=== PATIENT | female | born 1980 | race Caucasian/White ===

== ENCOUNTER 2016-06-25 06:56 | Day surgery (SDC) | payer OTHER ==
[2016-06-25] MEDS ORDERED: LIDOCAINE W/ SODIUM BICARB 0.5 ML SYR ONE (07:05)
[2016-06-25] MEDS ORDERED: Lactated Ringers 1,000 ML PRIMARY IV ONE (07:05)
[2016-06-25] MEDS ORDERED: MIDAZOLAM 5 MG/1 ML ONE (07:29)
[2016-06-25] MEDS ORDERED: fentaNYL Inj 100 MCG/2 ML VIAL ONE (07:29)
[2016-06-25] MEDS ORDERED: PROMETHAZINE 25 MG/1 ML VIAL IM ONE (07:40)
[2016-06-25] MEDS ORDERED: LIDOCAINE HCL 1%/EPI 1:100,000 - 20 ML VIAL ONE (07:44)
[2016-06-25] MEDS ORDERED: SODIUM BICARBONATE 8.4% - 50 ML VIAL ONE (07:44)
[2016-06-25] MEDS ORDERED: KETOROLAC 30 MG/1 ML VIAL ONE (08:30)
--- NOTE | 2016-06-25 08:42 | GEN.OPNOTE ---
Operative Note Surgery Date: 06/25/16 Preoperative Diagnosis: 1 cm lesion right forearm. Postoperative Diagnosis: 1 cm lesion right forearm. Procedure: Excision 1 cm lesion right forearm. For an adequate margin excision size was 1.2 cm. Surgeon: Terrence Junior MD Anesthesia Provider: Leonardo Alba CRNA Anesthesia Type: Local (1% Xylocaine with epinephrine and bicarbonate per Terrence Junior M.D.), MAC Estimated Blood Loss (mL): 2 Fluids: 1 L crystalloid. 30 mg of IV Toradol at the end of the procedure. Pathology: Specimen to pathology. Indications: Bothersome lesion right forearm. Patient desires excision. Appears to be a nodule of scar tissue. Findings: Nodule in the skin. Complications: None. Operative Summary: The patient was taken to the operating suite placed in the operating table in a supine position. Her arm was placed across her chest. A surgical timeout was done. The area was prepped and draped in a sterile fashion. The area was infiltrated with 1% Xylocaine with epinephrine and bicarbonate. An elliptical excision was done sharply. This was carried down to the fascia. The skin edges were undermined. The wound was closed with deep inverted interrupted 3-0 Vicryls. The skin was closed with interrupted 4-0 Prolene followed by Mastisol Steri-Strips and an appropriate dressing. Patient tolerated the procedure well without complication. She was taken to outpatient surgery in stable condition. All counts were correct.
[2016-06-25 09:08] VITALS: RESP 12
[2016-06-25 10:26] VITALS: TEMP 97.4
== END 2016-06-25 10:10 | disposition home or self-care (01) ==
LOC: SDSC 06:56
PROVIDERS: ATTEND Surgery
DX: R22.31 Localized swelling, mass and lump, right upper limb (principal)
CPT/HCPCS: J1885; J2250; J2550; J3010; J7120

== ENCOUNTER 2016-07-28 07:21 | Emergency (ER) | payer OTHER ==
[2016-07-28 07:36] VITALS: RESP 12; TEMP 96.2
[2016-07-28] MEDS ORDERED: ONDANSETRON 4 MG/2 ML VIAL IVP ONE (07:38)
[2016-07-28] MEDS ORDERED: NORMAL SALINE 10 ML SYRINGE FLUSH IVP PRN (07:38)
[2016-07-28] MEDS ORDERED: Sodium Chloride 0.9% 1,000 ML PRIMARY IV ONE (07:38)
[2016-07-28] MEDS ORDERED: ONDANSETRON 4 MG/2 ML VIAL ONE (07:52)
[2016-07-28] MEDS ORDERED: Sodium Chloride 0.9% 1,000 ML ONE (07:52)
[2016-07-28 08:05] LABS: BASOPHILS # (AUTO) 0.04 10*3/UL; BASOPHILS % (AUTO) 0.2 % (0-1); HEMATOCRIT 47.9 % (37.0-47.0); HEMOGLOBIN 16.2 g/dL (12.0-16.0); IMM GRAN % (AUTO) 0.4 % (0-5); IMM GRAN# (AUTO) 0.08 10*3/UL; LYMPHOCYTES # (AUTO) 2.56 10*3/uL; LYMPHOCYTES % (AUTO) 13.1 % (10-50); MEAN CORPUSCULAR HGB CONC 33.8 g/dL (33-37); MEAN PLATELET VOLUME 9.2 FL (7.4-12.2); MONOCYTES # (AUTO) 1.73 10*3/UL (0.3-0.8); MONOCYTES % (AUTO) 8.9 % (5-15); NEUTROPHILS # (AUTO) 14.91 10*3/UL; NEUTROPHILS % (AUTO) 76.4 % (50-80); RDW COEFFICIENT OF VARIATION 13.9 % (11.5-14.5); WHITE BLOOD COUNT 19.52 10^3/uL (4.8-10.8)
[2016-07-28 08:11] LABS: ASPARTATE AMINO TRANSFERASE 33 IU/L (8-39); BILIRUBIN,TOTAL 0.7 mg/dL (0.3-1.2); BLOOD UREA NITROGEN 12 mg/dL (7-22); CALCIUM 9.1 mg/dL (8.7-10.7); CHLORIDE 104 meq/L (98-112); CREATININE 0.8 mg/dL (0.50-1.20); EST GLOMERULAR FILTRATION > 60 (>60 ml/min/1.73m(2)); GLUCOSE 107 mg/dL (78-110); POTASSIUM 3.8 meq/L (3.8-5.2); SODIUM 140 meq/L (135-145); TOTAL PROTEIN 7.3 g/dL (6.1-8.0)
[2016-07-28 08:38] LABS: PLATELET MORPHOLOGY COMMENT NORMAL MORPHOLOGY (NORM)
--- NOTE | 2016-07-28 08:51 | PDOC ---
Nausea/Vomiting/Diarrhea HPI - General Chief Complaint: Nausea / Vomiting / Diarrhea Stated Complaint: vomiting Date Seen by Provider: 07/28/16 Time Seen by Provider: 07:30 Source: POSITIVE: Patient Exam Limitations: POSITIVE: No limitations Nurse's Notes Reviewed & Considered: Yes - History of Present Illness Initial Comments: The patient is a 35-year-old female. She states that around 5 AM she developed some vomiting and states she is vomited about 8 times since 5 AM. She states that she had some topical was from a "[employer]" last night. 3 of her companions who had the same type of food also developed nausea and vomiting. No fevers. Some mild abdominal cramping. No diarrhea. No melena, hematochezia , hematemesis, dysuria or hematuria. History of chronic back pain for which he takes hydrocodone/APAP and is on a pain contract with one of the local family physicians. She also takes lisinopril for hypertension and Protonix for GERD. Body Location Affected: REPORTS: Abdomen Timing: REPORTS: Abrupt Duration: 1-3 hours Severity: Moderate Quality: REPORTS: Cramping Abdominal Pain Onset Location: DENIES: RUQ, LUQ, RLQ, LLQ, Epigastric, Periumbilical, Suprapubic, Generalized abdomen, Flank, Other Abdominal Pain Radiation: REPORTS: No radiation Context: REPORTS: None Modifying Factors: improves with: Vomiting Associated Symptoms: REPORTS: Vomiting, Frequent Vomiting. DENIES: Bloody Emesis, Blood-Streaked Emesis, Bilious Emesis, Feculent Emesis, Mild Vomiting, Copious Diarrhea, Mucous Diarrhea, Bloody Diarrhea, Blood-Streaked Diarrhea, Watery Diarrhea, Diarrhea, Mild Diarrhea, Abdominal Pain, Cramping, Aching, Burning, Diffuse Pain, Epigastric Pain, RUQ Pain, RLQ Pain, LUQ Pain, LLQ Pain, Suprapubic Pain, Periumbilical Pain, Other Similar Symptoms Previously: No Recent Care Received: REPORTS: Denies Any Prior Injuries Related to Current Complaint?: No - Patient Home Medications Home Medications: Home Medications Cyclobenzaprine HCl 10 mg PO TID PRN #60 tab 07/10/16 Hydrocodone/Acetaminophen [Hydrocodon-Acetaminophen 5-325] 1 - 2 tab PO QD #50 tab 07/10/16 Ibuprofen 800 mg PO TID PRN #30 tab 07/10/16 Lisinopril 1 tab PO DAILY #30 tab 07/10/16 Pantoprazole Sodium 1 tab PO DAILY #30 tab 07/10/16 Promethazine HCl 1 tab PO Q6H PRN #30 tab 07/10/16 Ondansetron Odt [Zofran ODT] 4 mg SL Q4H PRN #15 tablet 07/28/16 - Patient Allergies Allergies/Adverse Reactions: Allergies Allergy/AdvReac Type Severity Reaction Status Date / Time hydromorphone HCl Allergy Severe NAUSEA Verified 07/28/16 07:37 [From Dilaudid] latex [Latex] Allergy Severe HIVES Verified 07/28/16 07:37 morphine [Morphine] Allergy Severe NAUSEA Verified 07/28/16 07:37 strawberry [[place]] Allergy Severe HIVES Verified 07/28/16 07:37 adhesive [Adhesive] Allergy Mild RASH Verified 07/28/16 07:37 Penicillins Allergy Mild NAUSEA Verified 07/28/16 07:37 citric acid Allergy Intermediate HIVES Uncoded 07/28/16 07:37 mushroom Allergy Intermediate Anaphylaxis Uncoded 07/28/16 07:37 Past Medical History - heen HEENT History: Denies History Additional HEENT History: wears glasses, Hx of T&A as a child Cardiovascular History: Hypertension Additional Cardiovasular History: not on meds Respiratory History: Snoring Gastrointestinal History: GERD, Peptic Ulcer Disease Additional Gastrointestinal History: Hx of cholecystectomy Genitourinary History: Recurrent UTI, Kidney Stones Additional Genitourinary History: STENT PLACED 05/13/14, REMOVED. GETS KIDNEY STONES ONCE A MONTH Endocrine History: Denies History Musculoskeletal History: Back Pain Prosthesis or Implant: No Additional Musculoskeletal History: L5-S1 BULGING and torn DISC Neurological History: Denies History Blood Disorders: Denies History Psychiatric History: Depression, Anxiety Disorders History of Sexually Transmitted Diseases: Yes (GONORRHEA AND CHLAMADYA) Cancer History: Other (please comment) In Past Year Been Physically Harmed or Verbally Threatened: No History of MDRO: Yes Type of MDRO: MRSA History of Other Communicable Diseases: No Tobacco Use: Current Every Day Smoker Alcohol Use: None Substance Use Type: Marijuana Previous Surgical History: Yes Type / Date of Surgery: BILAT OOPHORECTOMY/ LEEP/ GRACE/ COLONOSCOPY/ EGD/ HYST / TONSILLECTOMY Anesthesia Reactions: No Malignant Hyperthermia: No Significant Family History: Cancer Additional Family History: MOTHER HTN/DM Past Medical History Reviewed: Reviewed - No Changes ROS - Limitations ROS Limitations: No Limitations Constitution: REPORTS: Denies Symptoms Cardiovascular: REPORTS: Denies Cardiac Symptoms Respiratory: REPORTS: Denies Resp Symptoms Neurological: REPORTS: Denies Neuro Symptoms Gastrointestinal: REPORTS: Vomitting Endocrine: REPORTS: Denies Symptoms Musculoskeletal: REPORTS: Denies MS Symptoms Genitourinary: REPORTS: Denies Symptoms Eyes: REPORTS: Denies Symptoms ENT: REPORTS: Denies Symptoms Skin: REPORTS: Denies Skin Symptoms Lympathic: REPORTS: Denies Lympathic Symptoms Immunologic: POSITIVE: Denies Symptoms Psychiatric: POSITIVE: Denies Psych Symptoms Nausea/Vomiting/Diarrhea Exam - General Appearance General Appearance: POSITIVE: Alert, Cooperative, No Acute Distress, No Evidence of Trauma - Neck Neck: POSITIVE: Supple, Normal Inspection, Non Tender - Respiratory Respiratory: POSITIVE: No Respiratory Distress, Breath Sounds Normal, Chest Non- Tender - Cardiovascular Cardiovascular: POSITIVE: Regular Rate and Rhythm, Heart Sounds Normal, Equal Pulses, Strong Pulses Peripheral Pulses: Radial (R): 2+, Radial (L): 2+ - Chest Chest: POSITIVE: Non Tender - Abdomen Abdomen: Soft: (All Quadrants), Normal Bowel Sounds: (All Quadrants), Denies Tenderness: (All Quadrants), No Splenomegaly: (All Quadrants), No Hepatomegaly: (All Quadrants), No Guarding: (All Quadrants), No Rebound: (All Quadrants), No Palpable Pulse: (All Quadrants), No Palpabale Mass: (All Quadrants), No Distention: (All Quadrants), No Rigidity: (All Quadrants) - Back Back: POSITIVE: Normal Inspection - Skin Skin: POSITIVE: Intact, Normal For Race, Warm, Dry, No Rash - Extremities Extremity: Non-Tender: (All Extremities), Normal ROM: (All Extremities), Normal Inspection: (All Extremities) - Neurological / Psychological Neurological: POSITIVE: Oriented X3, 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, Motor Normal, Sensation Normal, 5, 6 N/V/D Progress - Results Reviewed by me Lab Results Reviewed: Yes Lab Results:: Laboratory Results 07/28/16 Range/Units 07:58 WBC 19.52 H (4.8-10.8) 10^3/uL RBC 5.40 (4.20-5.40) 10^6/uL Hgb 16.2 H (12.0-16.0) g/dL Hct 47.9 H (37.0-47.0) % MCV 88.7 (81-99) FL MCH 30.0 (27-31) PG MCHC 33.8 (33-37) g/dL RDW Std Deviation 44.9 (39-50) fL RDW Coeff of [place]my[place] 13.9 (11.5-14.5) % Plt Count 295 (140-350) 10*3/uL MPV 9.2 (7.4-12.2) FL Immature Gran % (Auto) 0.4 (0-5) % Neut % (Auto) 76.4 (50-80) % Lymph % (Auto) 13.1 (10-50) % [place] % (Auto) 8.9 (5-15) % Eos % (Auto) 1.0 (0-8) % Baso % (Auto) 0.2 (0-1) % Immature Gran # (Auto) 0.08 10*3/UL Neut # (Auto) 14.91 10*3/UL Lymph # (Auto) 2.56 10*3/uL [place] # (Auto) 1.73 H (0.3-0.8) 10*3/UL Eos # (Auto) 0.20 10*3/UL Baso # (Auto) 0.04 10*3/UL WBC Morphology Comment See comments (NORM) Plt Morphology Comment Normal morphology (NORM) RBC Morph Comment Normal morphology (NORM) Sodium 140 (135-145) meq/L Potassium 3.8 (3.8-5.2) meq/L Chloride 104 (98-112) meq/L Carbon Dioxide 26 (23-33) meq/L Anion Gap 10 (5-20) BUN 12 (7-22) mg/dL Creatinine 0.8 (0.50-1.20) mg/dL Estimated GFR > 60 (>60 ml/min/1.73m(2)) BUN/Creatinine Ratio 15.00 (6-20) Glucose 107 (78-110) mg/dL Calculated Osmolality 289.0 (267-292) mOsm/kg Calcium 9.1 (8.7-10.7) mg/dL Total Bilirubin 0.7 (0.3-1.2) mg/dL AST 33 (8-39) IU/L ALT 60 H (9-52) IU/L Alkaline Phosphatase 90 (38-126) IU/L Total Protein 7.3 (6.1-8.0) g/dL Albumin 4.3 (3.5-4.8) g/dL Globulin 3.0 (2.50-4.10) g/dL Albumin/Globulin Ratio 1.40 (1.3-2.0) mg/g - Patient's Progress Pain Medication Addressed: POSITIVE: Not Applicable School/Work Release Addressed: POSITIVE: Yes (Work excuse given for today) Re-examine Time: 08:35 Re-Examine Comment: No further vomiting in the emergency room. Patient states she feels much better after hydration with a liter of normal saline and 4 mg of Zofran IV. Status: POSITIVE: Improved, Re-Examined - Consult Counseled: POSITIVE: Patient, RE: Lab Results, RE: DX, RE: Need for F/U Patient Care Time - Estimated PCT Patient Care Time (In Minutes): 30 Vital Signs - Recent Vital Signs Vital Signs: Vital Signs (Last 8 hours) Temp Pulse Resp BP Pulse Ox 07/28/16 07:29 96.2 F L 102 H 12 126/100 100 - VS Reviewed Vital Signs Reviewed: Yes Discharge Clinical Impression: Nausea and vomiting Discharge Disposition: Discharged to Home Condition: Good Prescriptions / Orders: Ondansetron Odt [Zofran ODT] 4 mg SL Q4H PRN #15 tablet PRN Reason: Nausea Patient Instructions Given at Discharge: Acute Nausea and Vomiting (ED) Additional Instructions: You most likely have a type of food poisoning. I do not believe the type of food poisoning you have is contagious, however. I believe you're going to be fine. Clear liquid diet for 12-24 hours. Zofran ODT, one dissolved under the tongue every 4 hours as necessary for nausea. Follow-up with your primary care provider. Return here anytime if condition worsens in any way. Follow Up With: NONE,NONE [Primary Care Provider] - (Instructions as above. Follow-up with your primary care provider. Return here anytime if condition worsens.)
== END 2016-07-28 08:48 | disposition home or self-care (01) ==
LOC: ER 07:21
DX: R11.2 Nausea with vomiting, unspecified (principal)
CPT/HCPCS: 36415; 80053; 85025; 96361; 96374; 99283; J2405; J7030